=== PATIENT | female | born 1995 | race Caucasian/White ===

== ENCOUNTER 2018-06-23 16:25 | Emergency (ER) | payer OTHER ==
[2018-06-23 16:59] VITALS: BP 121/80; PULSE 86; TEMP 98.4; BMI 37.5
--- NOTE | 2018-06-23 16:59 | PDOC ---
Rapid Medical Evaluation Chief Complaint: Pain, Acute Time Seen by Provider: 06/23/18 16:58 Medical Evaluation: Allergies Allergy/AdvReac Type Severity Reaction Status Date / Time aspirin Allergy Verified 03/09/15 11:23 06/23/18 16:58 I did a brief in person evaluation on this patient. CC: Epigastric pain HPI: Pt has had one day of epigastric pain with N/V/D PE: Skin: Clear Lungs: Clear Heart:RRR Abd: soft, tender in epigastric area. MS: Moves all extremities without difficulty Neuro: alert Psych: appropriate affect. I have ordered: abd protocol Pt will proceed to main ED for further evaluation. Discharge Disposition - Diagnosis Abdominal pain Qualifiers: Abdominal location: epigastric Qualified Code(s): R10.13 - Epigastric pain - Discharge Dispostion Condition at time of disposition: Stable - Referrals - Patient Instructions - Post Discharge Activity
[2018-06-23 17:28] LABS: BASO % 0.8 % (0-2.0); EOS % 1.2 % (0-4.5); HEMATOCRIT 38.3 % (32.4-45.2); HEMOGLOBIN 12.8 GM/dL (10.7-15.3); LYMPH % 26.2 % (8-40); MCH 30.1 pg (25.7-33.7); MCHC 33.4 g/dl (32.0-36.0); MEAN CELL VOLUME 90.1 fl (80-96); MEAN PLT VOLUME 9.1 fl (7.5-11.1); MONO % 5.7 % (3.8-10.2); NEUT % 66.1 % (42.8-82.8); PLATELET COUNT 286 K/MM3 (134-434); RBC 4.25 M/mm3 (3.60-5.2); RDW 13.1 % (11.6-15.6); WHITE BLOOD COUNT 10.3 K/mm3 (4.0-10.0)
[2018-06-23] MEDS ORDERED: ONDANSETRON *ODT* 4 MG TABLET SL ONE (17:38)
[2018-06-23] MEDS ORDERED: FAMOTIDINE 20 MG/50 ML IVPB 20 MG/50 ML MG IVPB ONE ×3 (17:38→18:01)
[2018-06-23] MEDS ORDERED: SODIUM CHLORIDE 1,000 ML IV STA (17:38)
[2018-06-23] MEDS ORDERED: MAG HYDROX/AL HYDROX/SIMETH 30 ML UNIT-DOSE CUP PO ONE (17:39)
[2018-06-23] MEDS ORDERED: MAG HYDROX/AL HYDROX/SIMETH 30 ML UNIT-DOSE CUP ONE ×2 (17:50→18:01)
[2018-06-23] MEDS ORDERED: ONDANSETRON 4 MG/2 ML VIAL ONE ×2 (17:50→18:01)
--- NOTE | 2018-06-23 17:52 | PDOC ---
History of Present Illness - General Chief Complaint: Pain, Acute Stated Complaint: STOMACH PAIN Time Seen by Provider: 06/23/18 16:58 History Source: Patient Exam Limitations: Clinical Condition - History of Present Illness Initial Comments: 06/23/18 17:46 Patient with history of asthma present with complaint of 2 day history of epigastric pain with nausea, vomiting and diarrhea. Patient reported eating home rice and beans 2 days ago and started having diarrhea the next day. Patient reported unable to keep any food down. Patient reported 3 episodes of diarrhea today and 3 episodes of vomiting today. Denies dizziness, weakness or any other symptoms. Timing/Duration: other (2 days) Past History - Past Medical History Allergies/Adverse Reactions: Allergies Allergy/AdvReac Type Severity Reaction Status Date / Time aspirin Allergy Verified 03/09/15 11:23 Home Medications: Ambulatory Orders Famotidine [Pepcid] 20 mg PO DAILY 6 Days #6 tablet 06/23/18 Mag Hydrox/Aluminum Hyd/Simeth [Maalox Advanced Suspension] 30 ml PO Q8H PRN # 200 ml 06/23/18 Ondansetron [Zofran Odt -] 4 mg SL TID PRN #21 od.tablet 06/23/18 Asthma: Yes Cancer: No Cardiac Disorders: No COPD: No Diabetes: No HTN: No Seizures: No Thyroid Disease: No - Immunization History Immunization Up to Date: No - Suicide/Smoking/Psychosocial Hx Smoking History: Never smoked Have you smoked in the past 12 months: No Information on smoking cessation initiated: No Hx Alcohol Use: No Drug/Substance Use Hx: No Hx Substance Use Treatment: No Review of Systems - Review of Systems Able to Perform ROS?: Yes Is the patient limited Serbian proficient: No Constitutional: No: Chills, Fever, Weakness HEENTM: No: Symptoms Reported Respiratory: No: Symptoms reported, See HPI, Cough, Orthopnea, Shortness of Breath, SOB with Exertion, SOB at Rest, Stridor, Wheezing, Productive cough, Hemoptysis, Other ABD/GI: Yes: Diarrhea, Nausea, Vomiting, Abdominal cramping (epigastric pain). No: Abdominal Distended, Abd. Pain w/ defecation, Blood Streaked Bowels, Constipated, Difficulty Swallowing, Poor Appetite, Poor Fluid Intake, Rectal Bleeding, Indigestion, Tarry Stools : No: Burning, Dysuria, Discharge, Frequency, Urgency Musculoskeletal: No: Muscle Weakness Neurological: No: Weakness, Dizziness All Other Systems: Reviewed and Negative *Physical Exam - Vital Signs Last Vital Signs Temp Pulse Resp BP Pulse Ox 98.4 F 86 18 121/80 100 06/23/18 16:55 06/23/18 16:55 06/23/18 16:55 06/23/18 16:55 06/23/18 16:55 - Physical Exam Comments: 06/23/18 17:49 GENERAL: Well developed, well nourished. Awake and alert. No acute distress. HEENT: Normocephalic, atraumatic. PERRLA, EOMI. No conjunctival pallor. Sclera are non-icteric. Moist mucous membranes. Oropharynx is clear. NECK: Supple. Full ROM. CARDIOVASCULAR: Regular rate and rhythm. No murmurs, rubs, or gallops. Distal pulses are 2+ and symmetric. PULMONARY: No evidence of respiratory distress. Lungs clear to auscultation bilaterally. No wheezing, rales or rhonchi. ABDOMINAL: Mild epigastric tenderness.Soft. Non-distended. No rebound or guarding. No organomegaly. Normoactive bowel sounds. MUSCULOSKELETAL Normal range of motion at all joints. SKIN: Warm and dry. Normal capillary refill. No rashes. No cyanosis. NEUROLOGICAL: Alert, awake, appropriate. Gait is normal without ataxia. PSYCHIATRIC: Cooperative. Good eye contact. Appropriate mood General Appearance: Yes: Nourished, Appropriately Dressed. No: Apparent Distress ED Treatment Course - LABORATORY CBC & Chemistry Diagram: 06/23/18 17:16 06/23/18 17:16 - ADDITIONAL ORDERS Additional order review: 06/23/18 17:16 RBC 4.25 MCV 90.1 MCHC 33.4 RDW 13.1 MPV 9.1 Neutrophils % 66.1 D Lymphocytes % 26.2 D Monocytes % 5.7 Eosinophils % 1.2 D Basophils % 0.8 D Medical Decision Making - Medical Decision Making 06/23/18 17:50 Patient with history of asthma present with complaint of 2 day history of epigastric pain with nausea ,vomiting and diarrhea. Patient reported eating home made rice and beans 2 days ago and started having diarrhea the next day. Patient reported unable to keep any food down. Patient reported 3 episodes of diarrhea today and 3 episodes of vomiting today. Denies dizziness, weakness or any other symptoms. Exam significant for mild epigastric tenderness without rebound or guarding otherwise normal exam. Symptoms likely viral gastroenteritis versus bacterial gastroenteritis. CBC, CMP and lipase lab ordered. Beta hCG a urine labs ordered. IV hydration with 1 L normal saline ordered. Zofran 4 mg sublingual, Pepcid 20 mg IV and Maalox 30 mg by mouth ordered. Reassess after 20 minutes 06/23/18 19:32 CBC shows no acute pathology. chemistry labs shows mild elevated AST which could be attributed to patient vomiting. Patient report feeling better with IVF , zofran and pepcid. abd U/S still pending 06/23/18 20:21 US negative. Patient stable for outpatient management of viral gastroenteritis with GI follow-up as needed *DC/Admit/Observation/Transfer Diagnosis at time of Disposition: Gastroenteritis Abdominal pain Qualifiers: Abdominal location: epigastric Qualified Code(s): R10.13 - Epigastric pain - Discharge Dispostion Disposition: HOME Condition at time of disposition: Stable Decision to Admit order: No - Prescriptions Prescriptions: Famotidine [Pepcid] 20 mg PO DAILY 6 Days #6 tablet Mag Hydrox/Aluminum Hyd/Simeth [Maalox Advanced Suspension] 30 ml PO Q8H PRN # 200 ml PRN Reason: abdominal discomfort Ondansetron [Zofran Odt -] 4 mg SL TID PRN #21 od.tablet PRN Reason: vomiting - Referrals Referrals: Chelle Delong MD [Primary Care Provider] - - Patient Instructions Printed Discharge Instructions: DI for Viral Gastroenteritis -- Adult Additional Instructions: Your labs was normal and your ultrasound was normal. Your symptoms is likely stomach bug. Take medications as prescribed. Increase fluid intake. Follow-up with referred GI doctor if no improvement in 3 days - Post Discharge Activity Forms/Work/School Notes: Back to Work
[2018-06-23 18:53] LABS: ALBUMIN 3.8 g/dl (3.4-5.0); ALK PHOS 121 U/L (45-117); ANION GAP 9 MMOL/L (8-16); BILIRUBIN,TOTAL 0.4 mg/dL (0.2-1); BLOOD UREA NITROGEN 16 mg/dL (7-18); CALCIUM 9.3 mg/dL (8.5-10.1); CHLORIDE 106 mmol/L (98-107); CO2 25 mmol/L (21-32); CREATININE 0.8 mg/dL (0.55-1.3); GLUCOSE,RANDOM 78 mg/dL (74-106); LIPASE 77 U/L (73-393); POTASSIUM 4.3 mmol/L (3.5-5.1); SGOT/AST 41 U/L (15-37); SGPT/ALT 34 U/L (13-61); SODIUM 140 mmol/L (136-145); TOT PROT 7.4 g/dl (6.4-8.2)
== END 2018-06-23 20:12 | disposition home or self-care (01) ==
LOC: JER 16:25
PROC: 3E033GC Introduction of Other Therapeutic Substance into Peripheral Vein, Percutaneous Approach (ICD-10-PCS; principal; 2018-06-23)
DX: K52.9 Noninfective gastroenteritis and colitis, unspecified (principal)
CPT/HCPCS: 36415; 76705-TC; 80053; 83690; 84702; 85025; 99282-25; J7030; Q0162

== ENCOUNTER 2020-12-14 20:27 | Emergency (ER) | payer OTHER ==
[2020-12-14 20:51] VITALS: BP 115/71; PULSE 108; TEMP 98.1; BMI 91.5
[2020-12-14] MEDS ORDERED: DEXAMETHASONE LIQUID 0.5 MG/5 ML PO ONE (21:27)
[2020-12-14] MEDS ORDERED: DEXAMETHASONE SOD PHOSPHATE 10 MG/1 ML VIAL ONE (21:37)
== END 2020-12-14 22:42 | disposition home or self-care (01) ==
LOC: JERFT 20:27
DX: J02.9 Acute pharyngitis, unspecified (principal)
CPT/HCPCS: 87880; 99283-25

== ENCOUNTER 2021-02-23 16:18 | Emergency (ER) | payer OTHER ==
[2021-02-23 16:43] VITALS: BP 107/72; PULSE 102; TEMP 98.9; BMI 40.7
[2021-02-27 01:06] LABS: SARS-CoV-2 NAA Detected (Not Detected)
== END 2021-02-23 18:47 | disposition home or self-care (01) ==
LOC: JER 16:18
DX: R05.1 Acute cough (principal); R09.81 Nasal congestion; J06.9 Acute upper respiratory infection, unspecified
CPT/HCPCS: 71046-TC-FY; 87804; 99284-25; C9803; U0003; U0005

== ENCOUNTER 2023-03-13 02:41 | Emergency (ER) | payer OTHER ==
[2023-03-13 02:50] VITALS: BMI 24.3
[2023-03-13 03:33] LABS: BASO % 0.3 % (0-2.0); HEMATOCRIT 41.9 % (32.4-45.2); LYMPH % 26.9 % (8-40); MCH 31.2 pg (25.7-33.7); MCHC 33.3 g/dl (32.0-36.0); MEAN CELL VOLUME 93.6 fl (80-96); MEAN PLT VOLUME 9.1 fl (7.5-11.1); NEUT % 66.8 % (42.8-82.8); PLATELET COUNT 294 10^3/uL (134-434); RBC 4.48 M/mm3 (3.60-5.2); RDW 13.8 % (11.6-15.6); WHITE BLOOD COUNT 11.4 K/mm3 (4.0-10.0)
[2023-03-13] MEDS ORDERED: ACETAMINOPHEN 1000 MG/100 ML BAG IVPB ONE (03:37)
[2023-03-13] MEDS ORDERED: ACETAMINOPHEN INJECTION 100 ML IVPB ONE (03:50)
[2023-03-13 04:01] LABS: POTASSIUM 3.6 mmol/L (3.5-5.1)
[2023-03-13 04:03] LABS: CALCIUM 8.7 mg/dL (8.5-10.1)
[2023-03-13 04:04] LABS: ALBUMIN 3.4 g/dl (3.4-5.0); BLOOD UREA NITROGEN 11.1 mg/dL (7-18)
[2023-03-13 04:07] LABS: CREATININE 0.6 mg/dL (0.55-1.3)
[2023-03-13 04:08] LABS: BILIRUBIN,TOTAL 0.3 mg/dL (0.2-1); TOT PROT 7.2 g/dl (6.4-8.2)
[2023-03-13 08:22] LABS: PH,URINE 5.5 (5.0-8.0); URINE APPEARANCE CLEAR; URINE BILIRUBIN NEGATIVE (NEGATIVE); URINE COLOR YELLOW; URINE GLUCOSE (UA) NEGATIVE (NEGATIVE); URINE KETONE NEGATIVE (NEGATIVE); URINE LEUK ESTERASE NEGATIVE (NEGATIVE); URINE NITRITE NEGATIVE (NEGATIVE); URINE PROTEIN NEGATIVE (NEGATIVE)
[2023-03-13 11:18] VITALS: BP 95/54; PULSE 58; RESP 16; TEMP 98.1
== END 2023-03-13 10:26 | disposition home or self-care (01) ==
LOC: JER 02:41
PROC: 3E033NZ Introduction of Analgesics, Hypnotics, Sedatives into Peripheral Vein, Percutaneous Approach (ICD-10-PCS; principal; 2023-03-13)
DX: O20.0 Threatened abortion (principal); O26.891 Other specified pregnancy related conditions, first trimester; R10.30 Lower abdominal pain, unspecified; Z3A.08 8 weeks gestation of pregnancy
CPT/HCPCS: 36415; 76817-TC; 80053; 81003; 84702; 85025; 86850; 86900; 86901; 87086; 99284-25

== ENCOUNTER 2023-10-05 20:23 | Emergency (ER) | payer OTHER ==
[2023-10-05 20:39] VITALS: PULSE 70; RESP 18; TEMP 97.9; BMI 27.3
[2023-10-05 21:43] LABS: BASO % 0.6 % (0-2.0); EOS % 1.2 % (0-4.5); HEMATOCRIT 39.9 % (32.4-45.2); HEMOGLOBIN 13.3 GM/dL (10.7-15.3); LYMPH % 41.1 % (8-40); MCH 31.3 pg (25.7-33.7); MCHC 33.4 g/dl (32.0-36.0); MEAN CELL VOLUME 93.9 fl (80-96); MEAN PLT VOLUME 9.3 fl (7.5-11.1); MONO % 5.5 % (3.8-10.2); NEUT % 51.6 % (42.8-82.8); PLATELET COUNT 269 10^3/uL (134-434); RBC 4.25 M/mm3 (3.60-5.2); WHITE BLOOD COUNT 7.6 K/mm3 (4.0-10.0)
[2023-10-05] MEDS ORDERED: ACETAMINOPHEN INJECTION 100 ML IVPB ONE (21:48)
[2023-10-05 21:50] LABS: INR 1.14 (0.83-1.09); PROTHROMBIN TIME (PATIENT) 12.8 SEC (9.7-13.0)
[2023-10-05 21:52] LABS: ACTIVATED PTT 33.9 SECONDS (25.2-36.5)
[2023-10-05] MEDS: ACETAMINOPHEN 1000 MG/100 ML BAG IVPB ONE (21:55)
[2023-10-05] MEDS: SODIUM CHLORIDE 0.9% 500 ML INFUS.BAG IV ONE (21:55)
[2023-10-05 22:19] LABS: CHLORIDE 112 mmol/L (98-107); POTASSIUM 4.4 mmol/L (3.5-5.1); SODIUM 144 mmol/L (136-145)
[2023-10-05 22:21] LABS: ALBUMIN 3.5 g/dl (3.4-5.0); ANION GAP 8 mmol/L (4-13); BLOOD UREA NITROGEN 12.8 mg/dL (7-18); CALCIUM 8.6 mg/dL (8.5-10.1); CO2 24 mmol/L (21-32)
[2023-10-05 22:22] LABS: GLUCOSE,RANDOM 93 mg/dL (74-106)
[2023-10-05 22:24] LABS: SGOT/AST 25 U/L (15-37); SGPT/ALT 25 U/L (13-61)
[2023-10-05 22:25] LABS: CREATININE 0.8 mg/dL (0.55-1.3)
[2023-10-05 22:26] LABS: BILIRUBIN,TOTAL 0.3 mg/dL (0.2-1); TOT PROT 6.9 g/dl (6.4-8.2)
[2023-10-05 22:27] LABS: ALK PHOS 115 U/L (45-117)
[2023-10-05 22:53] VITALS: BP 105/68
== END 2023-10-05 22:53 | disposition home or self-care (01) ==
LOC: JER 20:23
PROC: 3E033NZ Introduction of Analgesics, Hypnotics, Sedatives into Peripheral Vein, Percutaneous Approach (ICD-10-PCS; principal; 2023-10-05)
DX: O26.891 Other specified pregnancy related conditions, first trimester (principal); R10.84 Generalized abdominal pain; Z3A.08 8 weeks gestation of pregnancy
CPT/HCPCS: 36415; 76817-TC; 80053; 84702; 85025; 85610; 85730; 86850; 86900; 86901; 99284-25; J0131

== ENCOUNTER 2023-12-12 17:14 | Emergency (ER) | payer OTHER ==
[2023-12-12 17:20] VITALS: BMI 34.0
[2023-12-12 19:08] LABS: BASO % 0.2 % (0-2.0); EOS % 1.3 % (0-4.5); HEMATOCRIT 35.3 % (32.4-45.2); HEMOGLOBIN 11.9 GM/dL (10.7-15.3); LYMPH % 22.8 % (8-40); MCHC 33.8 g/dl (32.0-36.0); MEAN CELL VOLUME 91.5 fl (80-96); MEAN PLT VOLUME 9.4 fl (7.5-11.1); MONO % 8.6 % (3.8-10.2); NEUT % 67.1 % (42.8-82.8); PLATELET COUNT 231 10^3/uL (134-434); RBC 3.86 M/mm3 (3.60-5.2); RDW 12.8 % (11.6-15.6); WHITE BLOOD COUNT 8.6 K/mm3 (4.0-10.0)
[2023-12-12] MEDS ORDERED: ONDANSETRON 4 MG/2 ML VIAL ONE (19:23)
[2023-12-12] MEDS ORDERED: ACETAMINOPHEN INJECTION 100 ML ONE (19:23)
[2023-12-12] MEDS ORDERED: FAMOTIDINE 20 MG/50 ML IVPB 20 MG/50 ML MG IVPB ONE (19:23)
[2023-12-12 19:31] LABS: POTASSIUM 4.5 mmol/L (3.5-5.1)
[2023-12-12] MEDS: SODIUM CHLORIDE 0.9% 500 ML INFUS.BAG IV ONE (19:31)
[2023-12-12] MEDS: ACETAMINOPHEN 1000 MG/100 ML BAG IVPB ONE (19:31)
[2023-12-12] MEDS: FAMOTIDINE 20 MG/50 ML IVPB 20 MG/50 ML MG IVPB ONE (19:32)
[2023-12-12] MEDS: ONDANSETRON 4 MG/2 ML VIAL IVPUSH ONE (19:32)
[2023-12-12 19:33] LABS: ALBUMIN 3.1 g/dl (3.4-5.0); BLOOD UREA NITROGEN 12.5 mg/dL (7-18); CALCIUM 8.6 mg/dL (8.5-10.1)
[2023-12-12 19:36] LABS: CREATININE 0.6 mg/dL (0.55-1.3)
[2023-12-12 19:38] LABS: BILIRUBIN,TOTAL 0.2 mg/dL (0.2-1); TOT PROT 6.5 g/dl (6.4-8.2)
[2023-12-12 21:27] LABS: URINE APPEARANCE CLOUDY; URINE BILIRUBIN NEGATIVE (NEGATIVE); URINE COLOR YELLOW; URINE GLUCOSE (UA) NEGATIVE (NEGATIVE); URINE KETONE TRACE (NEGATIVE)
[2023-12-12 21:28] LABS: PH,URINE 5.5 (5.0-8.0); URINE BACTERIA 50 /uL (0-1359); URINE LEUK ESTERASE 1+ (NEGATIVE); URINE NITRITE NEGATIVE (NEGATIVE); URINE PROTEIN NEGATIVE (NEGATIVE); URINE RBC 10 /uL (0-23.9); URINE UROBILINOGEN 0.2 mg/dL (0.2-1.0); URINE WBC 30 /uL (0-25.8)
[2023-12-12 22:03] VITALS: BP 129/70; PULSE 85; RESP 16; TEMP 97.8
== END 2023-12-12 22:03 | disposition home or self-care (01) ==
LOC: JER 17:14
PROC: 3E033GC Introduction of Other Therapeutic Substance into Peripheral Vein, Percutaneous Approach (ICD-10-PCS; principal; 2023-12-12)
PROC: 3E033GC Introduction of Other Therapeutic Substance into Peripheral Vein, Percutaneous Approach (ICD-10-PCS; 2023-12-12)
PROC: 3E033NZ Introduction of Analgesics, Hypnotics, Sedatives into Peripheral Vein, Percutaneous Approach (ICD-10-PCS; 2023-12-12)
DX: O26.891 Other specified pregnancy related conditions, first trimester (principal); R10.2 Pelvic and perineal pain; M54.50 Low back pain, unspecified; O00.211 Right ovarian pregnancy with intrauterine pregnancy; O98.511 Other viral diseases complicating pregnancy, first trimester; B34.9 Viral infection, unspecified; Z3A.01 Less than 8 weeks gestation of pregnancy
CPT/HCPCS: 36415; 76817-TC; 80053; 81003; 84702; 85025; 87086; 87651; 99284-25; J0131

== ENCOUNTER 2024-07-28 08:49 | Emergency (ER) | payer OTHER ==
[2024-07-28 09:01] VITALS: RESP 20; TEMP 98.2; BMI 26.6
[2024-07-28] MEDS ORDERED: ACETAMINOPHEN INJECTION 100 ML ONE (09:47)
[2024-07-28 09:54] LABS: ABSOLUTE IMMATURE GRANULOCYTES 0.02 x10^3/uL (0.0-0.031); BASOPHILS # 0.03 x10^3/uL (0.01-0.08); EOSINOPHIL % 1.6 % (0.7-5.8); EOSINOPHILS # 0.12 x10^3/uL (0.04-0.36); HEMATOCRIT 40.8 % (34.1-44.9); HEMOGLOBIN 12.8 g/dL (11.2-15.7); MCHC 31.4 g/dl (32.2-35.5); MEAN CELL VOLUME 90.5 fl (79.4-94.8); MEAN PLT VOLUME 11.3 fl (9.4-12.3); MONOCYTE % 7.9 % (4.7-12.5); PLATELET COUNT 280 x10^3/uL (182-369); RDW 13.1 % (12.1-16.5)
[2024-07-28] MEDS: ACETAMINOPHEN 1000 MG/100 ML BAG IVPB ONE (09:54)
[2024-07-28 10:02] LABS: INR 1.1 (0.83-1.09); PROTHROMBIN TIME (PATIENT) 12.1 SEC (9.7-13.0)
[2024-07-28 10:04] LABS: EPI CELLS 3 /uL (0-25.1); HCG,QUALITATIVE URINE Negative; HYALINE CASTS 0 /uL (0-3.1); URINE APPEARANCE CLEAR; URINE BACTERIA 16 /uL (0-1359); URINE BILIRUBIN NEGATIVE (NEGATIVE); URINE COLOR YELLOW; URINE GLUCOSE (UA) NEGATIVE (NEGATIVE); URINE KETONE NEGATIVE (NEGATIVE); URINE LEUK ESTERASE NEGATIVE (NEGATIVE); URINE NITRITE NEGATIVE (NEGATIVE); URINE PROTEIN NEGATIVE (NEGATIVE); URINE RBC 206 /uL (0-23.9); URINE UROBILINOGEN 0.2 mg/dL (0.2-1.0); URINE WBC 3 /uL (0-25.8)
[2024-07-28 10:05] LABS: ACTIVATED PTT 31.7 SECONDS (25.2-36.5)
[2024-07-28 10:20] LABS: CHLORIDE 108 mmol/L (98-107); POTASSIUM 4.3 mmol/L (3.5-5.1); SODIUM 141 mmol/L (136-145)
[2024-07-28 10:22] LABS: ALBUMIN 3.6 g/dl (3.4-5.0); BLOOD UREA NITROGEN 11.4 mg/dL (7-18); CALCIUM 9.5 mg/dL (8.5-10.1)
[2024-07-28 10:23] LABS: ANION GAP 8 mmol/L (4-13); CO2 26 mmol/L (21-32); GLUCOSE,RANDOM 99 mg/dL (74-106)
[2024-07-28 10:26] LABS: SGOT/AST 25 U/L (15-37); SGPT/ALT 20 U/L (13-61)
[2024-07-28 10:27] LABS: CREATININE 0.7 mg/dL (0.55-1.3)
[2024-07-28 10:28] LABS: BILIRUBIN,TOTAL 0.4 mg/dL (0.2-1)
[2024-07-28 10:29] LABS: ALK PHOS 117 U/L (45-117)
[2024-07-28 13:22] VITALS: BP 120/78; PULSE 76
== END 2024-07-28 14:13 | disposition home or self-care (01) ==
LOC: JER 08:49
PROC: 3E033NZ Introduction of Analgesics, Hypnotics, Sedatives into Peripheral Vein, Percutaneous Approach (ICD-10-PCS; principal; 2024-07-28)
DX: O03.9 Complete or unspecified spontaneous abortion without complication (principal)
CPT/HCPCS: 36415; 76817-TC; 80053; 81003; 84702; 84703; 85025; 85610; 85730; 86850; 86900; 86901; 99285-25; J0131

== ENCOUNTER 2024-08-12 21:29 | Emergency (ER) | payer OTHER ==
[2024-08-12 21:37] VITALS: RESP 18; BMI 28.2
[2024-08-12] MEDS ORDERED: METOCLOPRAMIDE HCL INJECTION 10 MG/2 ML VIAL ONE (22:45)
[2024-08-12] MEDS ORDERED: ACETAMINOPHEN INJECTION 100 ML ONE (22:46)
[2024-08-12 22:52] LABS: EPI CELLS 3 /uL (0-25.1); HCG,QUALITATIVE URINE Negative; HYALINE CASTS 0 /uL (0-3.1); URINE APPEARANCE CLEAR; URINE BACTERIA 49 /uL (0-1359); URINE BILIRUBIN NEGATIVE (NEGATIVE); URINE COLOR YELLOW; URINE GLUCOSE (UA) NEGATIVE (NEGATIVE); URINE KETONE NEGATIVE (NEGATIVE); URINE LEUK ESTERASE NEGATIVE (NEGATIVE); URINE NITRITE NEGATIVE (NEGATIVE); URINE PROTEIN NEGATIVE (NEGATIVE); URINE RBC 9 /uL (0-23.9); URINE UROBILINOGEN 0.2 mg/dL (0.2-1.0); URINE WBC 2 /uL (0-25.8)
[2024-08-13 00:13] LABS: ABSOLUTE IMMATURE GRANULOCYTES 0.02 x10^3/uL (0.0-0.031); BASOPHILS # 0.02 x10^3/uL (0.01-0.08); EOSINOPHIL % 1.9 % (0.7-5.8); EOSINOPHILS # 0.17 x10^3/uL (0.04-0.36); HEMATOCRIT 37.5 % (34.1-44.9); HEMOGLOBIN 12.1 g/dL (11.2-15.7); MCHC 32.3 g/dl (32.2-35.5); MEAN CELL VOLUME 89.1 fl (79.4-94.8); MEAN PLT VOLUME 11.3 fl (9.4-12.3); MONOCYTE # 0.62 x10^3/uL (0.24-0.86); PLATELET COUNT 253 x10^3/uL (182-369); RDW 13.2 % (12.1-16.5)
[2024-08-13] MEDS: SODIUM CHLORIDE 1,000 ML IV STA (00:15)
[2024-08-13] MEDS: METOCLOPRAMIDE HCL INJECTION 10 MG/2 ML VIAL IVPUSH ONE (00:15)
[2024-08-13] MEDS: ACETAMINOPHEN 1000 MG/100 ML BAG IVPB ONE (00:15)
[2024-08-13 00:42] LABS: POTASSIUM 4.1 mmol/L (3.5-5.1)
[2024-08-13 00:44] LABS: CALCIUM 8.9 mg/dL (8.5-10.1)
[2024-08-13 00:46] LABS: ALBUMIN 3.4 g/dl (3.4-5.0); BLOOD UREA NITROGEN 23.7 mg/dL (7-18); INR 1.1 (0.83-1.09); MAGNESIUM 2.2 mg/dL (1.8-2.4)
[2024-08-13 00:48] LABS: CREATININE 0.7 mg/dL (0.55-1.3)
[2024-08-13 00:49] LABS: ACTIVATED PTT 33.3 SECONDS (25.2-36.5); BILIRUBIN,TOTAL 0.3 mg/dL (0.2-1)
[2024-08-13 00:50] LABS: TOT PROT 6.6 g/dl (6.4-8.2)
[2024-08-13 02:13] VITALS: BP 95/62; PULSE 64; TEMP 97.9
== END 2024-08-13 02:41 | disposition home or self-care (01) ==
LOC: JER 21:29
PROC: 3E033NZ Introduction of Analgesics, Hypnotics, Sedatives into Peripheral Vein, Percutaneous Approach (ICD-10-PCS; principal; 2024-08-13)
PROC: 3E033GC Introduction of Other Therapeutic Substance into Peripheral Vein, Percutaneous Approach (ICD-10-PCS; 2024-08-13)
PROC: 3E0337Z Introduction of Electrolytic and Water Balance Substance into Peripheral Vein, Percutaneous Approach (ICD-10-PCS; 2024-08-13)
DX: N83.202 Unspecified ovarian cyst, left side (principal); R42 Dizziness and giddiness; R30.0 Dysuria; R10.31 Right lower quadrant pain; N89.8 Other specified noninflammatory disorders of vagina
CPT/HCPCS: 36415; 76830-TC; 80053; 81003; 83735; 84703; 85025; 85610; 85730; 86850; 86900; 86901; 87086; 87491; 87591; 87661; 99285-25

== ENCOUNTER 2024-08-31 14:36 | Observation (INO) | payer OTHER ==
[2024-08-31] MEDS ORDERED: ACETAMINOPHEN INJECTION 100 ML ONE (14:52)
[2024-08-31 15:53] LABS: ABSOLUTE IMMATURE GRANULOCYTES 0.03 x10^3/uL (0.0-0.031); BASOPHILS # 0.01 x10^3/uL (0.01-0.08); EOSINOPHIL % 0.7 % (0.7-5.8); EOSINOPHILS # 0.06 x10^3/uL (0.04-0.36); MCHC 32.3 g/dl (32.2-35.5); MEAN CELL VOLUME 88.9 fl (79.4-94.8); MEAN PLT VOLUME 11.3 fl (9.4-12.3); MONOCYTE # 0.41 x10^3/uL (0.24-0.86); MONOCYTE % 5.1 % (4.7-12.5); RDW 13.6 % (12.1-16.5)
[2024-08-31 15:59] LABS: EPI CELLS 18 /uL (0-25.1); HYALINE CASTS 3 /uL (0-3.1); URINE APPEARANCE CLEAR; URINE BACTERIA 36 /uL (0-1359); URINE BILIRUBIN NEGATIVE (NEGATIVE); URINE COLOR YELLOW; URINE GLUCOSE (UA) NEGATIVE (NEGATIVE); URINE KETONE NEGATIVE (NEGATIVE); URINE LEUK ESTERASE NEGATIVE (NEGATIVE); URINE NITRITE NEGATIVE (NEGATIVE); URINE PROTEIN NEGATIVE (NEGATIVE); URINE RBC 88 /uL (0-23.9); URINE UROBILINOGEN 0.2 mg/dL (0.2-1.0); URINE WBC 7 /uL (0-25.8)
[2024-08-31] MEDS: ACETAMINOPHEN 1000 MG/100 ML BAG IVPB ONE (16:01)
[2024-08-31] MEDS: SODIUM CHLORIDE 0.9% 500 ML INFUS.BAG IV ONE ×2 (16:01→17:32)
[2024-08-31 16:17] LABS: BG HCT 51.0 % (32.4-45.2); VENOUS BASE EXCESS -3.3 mmol/L (-2-2); VENOUS O2 SATURATION 72.8 % (70-80); VENOUS PCO2 38.2 mmHg (38-52); VENOUS PH 7.368 (7.310-7.410)
[2024-08-31 16:25] LABS: CO2 23.0 mmol/L (21-32); GLUCOSE,RANDOM 79.0 mg/dL (74-106)
[2024-08-31 16:28] LABS: CREATININE 0.6 mg/dL (0.55-1.3); SGOT/AST 15.0 U/L (15-37); SGPT/ALT 15.0 U/L (13-61)
[2024-08-31 16:30] LABS: TOT PROT 5.3 g/dl (6.4-8.2)
[2024-08-31 16:31] LABS: ALK PHOS 93.0 U/L (45-117)
[2024-08-31] MEDS ORDERED: METOCLOPRAMIDE HCL INJECTION 10 MG/2 ML VIAL ONE (17:24)
[2024-08-31 17:31] LABS: HCV DIAGNOSTIC IN-HOUSE W/RFLX NON-REACTIVE (NONREACTIVE)
[2024-08-31 17:32] LABS: HIV INTERPRETATION NEGATIVE (NEGATIVE)
[2024-08-31] MEDS: METOCLOPRAMIDE HCL INJECTION 10 MG/2 ML VIAL IVPB ONE (17:33)
[2024-08-31] MEDS ORDERED: ACETAMINOPHEN 500 MG TABLET (FP) PO PRN (18:38)
[2024-08-31] MEDS ORDERED: ONDANSETRON 4 MG/2 ML VIAL IVPUSH PRN (18:39)
[2024-09-01 03:35] VITALS: BMI 27.2
[2024-09-01] MEDS: IBUPROFEN 600 MG TABLET (FP) PO PRN ×2 (06:26→18:46)
[2024-09-01 08:05] LABS: ABSOLUTE IMMATURE GRANULOCYTES 0.01 x10^3/uL (0.0-0.031); BASOPHILS # 0.02 x10^3/uL (0.01-0.08); EOSINOPHIL % 2.8 % (0.7-5.8); EOSINOPHILS # 0.21 x10^3/uL (0.04-0.36); MCHC 31.4 g/dl (32.2-35.5); MEAN CELL VOLUME 90.1 fl (79.4-94.8); MEAN PLT VOLUME 11.1 fl (9.4-12.3); MONOCYTE # 0.45 x10^3/uL (0.24-0.86); MONOCYTE % 6.1 % (4.7-12.5); RDW 13.8 % (12.1-16.5)
[2024-09-01 08:38] LABS: CO2 25.0 mmol/L (21-32); GLUCOSE,RANDOM 83.0 mg/dL (74-106)
[2024-09-01 08:42] LABS: CREATININE 0.6 mg/dL (0.55-1.3)
[2024-09-01] MEDS ORDERED: POTASSIUM CHLORIDE 10 MEQ in DEXTROSE 5%-NORMAL SALINE 1,000 ML IVPB SCH (10:45)
[2024-09-01] MEDS: PANTOPRAZOLE 20 MG TABLET PO SCH (11:39)
[2024-09-01] MEDS: POTASSIUM CHLORIDE 10 MEQ in DEXTROSE 5%-NORMAL SALINE 1,000 ML IVPB SCH (12:23)
[2024-09-01] MEDS: PANTOPRAZOLE SODIUM 40 MG VIAL IVPUSH SCH (12:23)
[2024-09-01 15:22] LABS: PHENCYCLIDINE,URINE NEGATIVE (NEGATIVE); URINE AMPHETAMINES NEGATIVE (NEGATIVE)
[2024-09-01 15:23] LABS: COCAINE, UR NEGATIVE (NEGATIVE); METHADONE, UR NEGATIVE (NEGATIVE); URINE BARBITURATES NEGATIVE (NEGATIVE); URINE BENZODIAZEPINES NEGATIVE (NEGATIVE)
[2024-09-01 15:35] LABS: OPIATES, URI NEGATIVE (NEGATIVE)
[2024-09-01] MEDS: HEPARIN NA (PORCINE) 5,000 UNITS/ML 1ML VIAL SQ SCH (21:36)
[2024-09-01] MEDS: TRIMETHOBENZAMIDE HCL 200MG/2ML INJ IM PRN (23:01)
[2024-09-02 07:23] LABS: ABSOLUTE IMMATURE GRANULOCYTES 0.02 x10^3/uL (0.0-0.031); BASOPHILS # 0.03 x10^3/uL (0.01-0.08); EOSINOPHIL % 2.8 % (0.7-5.8); EOSINOPHILS # 0.21 x10^3/uL (0.04-0.36); MCHC 31.1 g/dl (32.2-35.5); MEAN CELL VOLUME 91.9 fl (79.4-94.8); MEAN PLT VOLUME 12.1 fl (9.4-12.3); MONOCYTE # 0.37 x10^3/uL (0.24-0.86); MONOCYTE % 5.0 % (4.7-12.5); RDW 13.8 % (12.1-16.5)
[2024-09-02 07:57] LABS: GLUCOSE,RANDOM 78.0 mg/dL (74-106)
[2024-09-02 07:58] LABS: CO2 24.0 mmol/L (21-32)
[2024-09-02 08:01] LABS: CREATININE 0.6 mg/dL (0.55-1.3); SGOT/AST 15.0 U/L (15-37); SGPT/ALT 16.0 U/L (13-61)
[2024-09-02 08:03] LABS: TOT PROT 5.3 g/dl (6.4-8.2)
[2024-09-02 08:04] LABS: ALK PHOS 86.0 U/L (45-117)
[2024-09-02] MEDS: POTASSIUM CHLORIDE 10 MEQ in DEXTROSE 5%-NORMAL SALINE 1,000 ML IVPB SCH (10:48)
[2024-09-02] MEDS: ACETAMINOPHEN 1000 MG/100 ML BAG IVPB PRN (13:19)
[2024-09-02] MEDS: SODIUM CHLORIDE 500 ML IV STA (14:02)
[2024-09-02] MEDS: BISACODYL 10 MG SUPP.RECT PR ONE (14:04)
[2024-09-02] MEDS: POLYETHYLENE GLYCOL (HEALTHYLAX) 3350 17 GM PACKET PO SCH (14:04)
[2024-09-02] MEDS: CEFTRIAXONE 1 GM in DEXTROSE 5%-WATER - 50 ML IVPB SCH (14:35)
[2024-09-02] MEDS ORDERED: ONDANSETRON 4 MG/2 ML VIAL IVPUSH PRN (15:29)
[2024-09-02] MEDS ORDERED: TRIMETHOBENZAMIDE HCL 200MG/2ML INJ IM PRN (17:09)
[2024-09-02] MEDS: DOXYCYCLINE HYCLATE 100 MG TABLET PO SCH (17:40)
[2024-09-02] MEDS: FLUCONAZOLE 150 MG TABLET PO ONE (19:20)
[2024-09-03 07:35] LABS: MCHC 31.0 g/dl (32.2-35.5); MEAN CELL VOLUME 90.7 fl (79.4-94.8); MEAN PLT VOLUME 11.4 fl (9.4-12.3); RDW 13.8 % (12.1-16.5)
[2024-09-03 10:15] LABS: GLUCOSE,RANDOM 81.0 mg/dL (74-106)
[2024-09-03 10:18] LABS: CREATININE 0.6 mg/dL (0.55-1.3); SGOT/AST 17.0 U/L (15-37)
[2024-09-03 10:19] LABS: TOT PROT 5.5 g/dl (6.4-8.2)
[2024-09-03 10:23] LABS: ALK PHOS 94.0 U/L (45-117); CO2 23.0 mmol/L (21-32); SGPT/ALT 17.0 U/L (13-61)
[2024-09-03 15:51] VITALS: RESP 18
[2024-09-04 08:09] LABS: ABSOLUTE IMMATURE GRANULOCYTES 0.02 x10^3/uL (0.0-0.031); BASOPHILS # 0.02 x10^3/uL (0.01-0.08); EOSINOPHIL % 2.4 % (0.7-5.8); EOSINOPHILS # 0.14 x10^3/uL (0.04-0.36); MCHC 31.7 g/dl (32.2-35.5); MEAN CELL VOLUME 90.5 fl (79.4-94.8); MEAN PLT VOLUME 11.5 fl (9.4-12.3); MONOCYTE # 0.47 x10^3/uL (0.24-0.86); MONOCYTE % 7.9 % (4.7-12.5); RDW 13.8 % (12.1-16.5)
[2024-09-04 10:17] VITALS: BP 112/77; PULSE 76; TEMP 98.1
== END 2024-09-04 12:04 | disposition home or self-care (01) ==
LOC: JER 14:36 → JERBED 18:01 → INTOOBSV 18:01 → UNDOADMOB 18:01 → JERBED 18:27 → J4W 19:09
PROVIDERS: ADMIT Internal Medicine; ATTEND Internal Medicine
PROC: 3E033NZ Introduction of Analgesics, Hypnotics, Sedatives into Peripheral Vein, Percutaneous Approach (ICD-10-PCS; principal; 2024-08-31)
PROC: 3E03329 Introduction of Other Anti-infective into Peripheral Vein, Percutaneous Approach (ICD-10-PCS; 2024-08-31)
PROC: 3E023GC Introduction of Other Therapeutic Substance into Muscle, Percutaneous Approach (ICD-10-PCS; 2024-08-31)
PROC: 3E033GC Introduction of Other Therapeutic Substance into Peripheral Vein, Percutaneous Approach (ICD-10-PCS; 2024-08-31)
PROC: 3E0337Z Introduction of Electrolytic and Water Balance Substance into Peripheral Vein, Percutaneous Approach (ICD-10-PCS; 2024-08-31)
PROC: 3E023GC Introduction of Other Therapeutic Substance into Muscle, Percutaneous Approach (ICD-10-PCS; 2024-08-31)
DX: R55 Syncope and collapse (principal); Z98.84 Bariatric surgery status; D64.9 Anemia, unspecified; I95.9 Hypotension, unspecified; R10.31 Right lower quadrant pain; R11.10 Vomiting, unspecified; Z90.49 Acquired absence of other specified parts of digestive tract
CPT/HCPCS: 36415; 70450-TC; 71045-TC-FY; 74177-TC; 74240-TC-FY; 76830-TC; 80048; 80053; 80307; 81003; 82803; 83605; 83735; 84100; 84484; 84702; 84703; 85025; 85027; 86803; 87086; 87389; 87637-QW; 93005; 93010; 93306-TC; 96361; 96365; 96372; 96375; 96376; 99285-25; G0378; Q9967